=== PATIENT | male | born 1975 | race Caucasian/White ===

== ENCOUNTER 2020-10-01 11:22 | Emergency (ER) | payer BC, SELFPAY ==
[2020-10-01 11:30] VITALS: BP 125/79; PULSE 85; RESP 16; TEMP 36.5; O2SAT 95; BMI 29.5
--- NOTE | 2020-10-01 12:02 | ED.BACK ---
HPI - Back Pain/Injury General Chief Complaint: Back Pain/Injury Stated Complaint: back pain Time Seen by Provider: 10/01/20 12:00 Source: patient Mode of arrival: ambulatory Limitations: no limitations History of Present Illness HPI Narrative: 45 y/o male with no medical history presents with acute on chronic lower back pain. 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 He can usually take ibuprofen with improvement however this time the pain is more severe. It is sharp in quality and radiates down his right buttock and sometimes into the front of his thigh. He denies LE weakness, numbness, or incontinence. He denies specific injury but his job is intensive. Pain was so severe he when down today at work that he was sent to the ER for evaluation. MD elicited complaint: back pain Pertinent past history: prior back pain Onset (ago): week(s) (1) Timing: constant Severity: severe Similar Symptoms Previously: Yes Quality: sharp Location: right lower back Radiation: buttocks and right upper leg Exacerbating factors: movement, walking and coughing/sneezing Relieving factors: immobilization Context: while lifting, turning/twisting and bending Associated symptoms: difficulty walking and myalgias Treatments prior to arrival: NSAIDS Work related injury: Yes Related Data Previous Rx's Medication Instructions Recorded cyclobenzaprine 10 mg PO TID PRN #10 tab 10/01/20 hydrocodone-acetaminophen [[place]] 1 tab PO Q6H PRN #6 tab 10/01/20 lidocaine [Lidoderm] 1 patch TOPICAL DAILY #15 ea 10/01/20 naproxen 500 mg PO BID PRN #20 tab 10/01/20 Allergies Allergy/AdvReac Type Severity Reaction Status Date / Time No Known Allergies Allergy Unverified 06/04/20 16:23 [No Known Allergies*] Review of Systems Review of Systems: Constitutional: No Fever, No Chills Cardiovascular: No Chest Pain, No SOB Respiratory: No Cough, No Sputum Gastrointestinal: No Nausea, No Vomiting, No Diarrhea, No abdominal Pain Genitourinary: No Dysuria, No Urinary Frequency, No Hematuria Musculoskeletal: + joint pain, + Myalgias Skin: No Skin Lesions, No rash Neuro: No Weakness, No Numbness, No Dizziness, No Headache Heme/Lymph: No Bruising, No Lymphadenopathy PMF Past Medical History Attestation statement: The following information was validated with the patient. Medical History No known health problems Social History Social History Advance Directives: No Advance Directives Information Provided: No Physical Exam Vital Signs: Vital Signs: Last Vital Signs Temp 97.7 F 10/01/20 11:30 Pulse 85 10/01/20 11:30 Resp 16 10/01/20 11:30 BP 125/79 10/01/20 11:30 Pulse Ox 95 10/01/20 11:30 Body Mass Index 29.5 Appearance: Alert. Oriented X3. No acute distress. HEENT: normal inspection CVS: Normal heart rate and rhythm. Pulses normal. Respiratory: No respiratory distress. Skin: Skin warm and dry. Normal skin color. Normal skin turgor. No rashes. Back: right lower lumbar soft tissue tenderness with significant tenderness over SI joint. limited spinal flexion due to pain Extremities: atraumatic, no edema, normal ROM of bilateral hips and knees. Neuro: Oriented X 3. No motor deficit. No sensory deficit. Walks with steady gait. Course Course Course Narrative: 45 y/o male here with acute on chronic right lower back pain. No red flag symptoms of LBP. No hx IVDA. Will get lumbar XR, give dose of IM Toradol and Tylenol and reassess. Reevaluation(s) Reevaluation #1: XR normal. Will d/c with treatment for lumbar strain - NSAID, lidoderm, muscle relaxer and PRN norco. Patient encouraged to f/u with his PCP for further management. MDM - Back Pain/Injury Differential Diagnosis Differential diagnosis: Likely lumbar radiculopathy, sciatica, strain of lumbar region, thoracic back pain and discitis Discharge Plan Discharge Clinical Impression: Strain of lumbar region Qualifiers: Encounter type: initial encounter Qualified Code(s): S39.012A - Strain of muscle, fascia and tendon of lower back, initial encounter Patient Disposition: Home, Self-Care Instructions: Low Back Strain (ED), Lower Back Exercises (ED) Additional Instructions: Your x-ray today was normal. Recommend rest. No bending, lifting or twisting. Use ice several times per day for 20 minutes at a time for the next 48 hours and then change to heat. Take medications as prescribed to help with pain and discomfort. Follow up with your Primary Care Doctor this week. If your pain worsens, if you develop new numbness, tingling, weakness, loss of function or incontinence call 911 or come back to the ER right away for evaluation. Prescriptions: New cyclobenzaprine 10 mg tablet 10 mg PO TID PRN (Reason: muscle spasm) Qty: 10 RF: 0 lidocaine [Lidoderm] 5 % adhesive patch,medicated 1 patch topical DAILY Qty: 15 RF: 0 naproxen 500 mg tablet 500 mg PO BID PRN (Reason: pain) Qty: 20 RF: 0 hydrocodone-acetaminophen [[place]] 5-325 mg tablet 1 tab PO Q6H PRN (Reason: severe pain (scale score 7-10)) Qty: 6 RF: 0 Stand Alone Forms: Work/School Release
--- NOTE | 2020-10-01 12:14 | XR_ITS ---
EXAMINATION: XR LUMBOSACRAL SPINE CLINICAL INFORMATION: Lower back pain right side COMPARISON: None TECHNIQUE: Three views of the lumbosacral spine. FINDINGS: There is normal lumbar lordosis. The vertebral heights and alignment appears normal. There is mild ventral spondylosis. No acute fracture, lytic or sclerotic process seen. The SI joints are symmetrical and normal. XR/XR lumbar spine 2-3V IMPRESSION: Unremarkable lumbar spine exam
[2020-10-01] MEDS: Acetaminophen 325 MG TABLET 975 MG PO (12:32)
[2020-10-01] MEDS: Ketorolac Tromethamine 30 MG/ML VIAL IM (12:32)
== END 2020-10-01 13:09 | disposition home or self-care (01) ==
PROVIDERS: Emergency Provider Emergency Medicine Emergency Medical Services; PCP Internal Medicine
DX: S39.012A Strain of muscle, fascia and tendon of lower back, initial encounter (principal); M79.661 Pain in right lower leg; X58.XXXA Exposure to other specified factors, initial encounter; Y93.9 Activity, unspecified; Y92.9 Unspecified place or not applicable; Y99.9 Unspecified external cause status; Z79.899 Other long term (current) drug therapy
CPT/HCPCS: 72100; 96372; 99284; J1885

== ENCOUNTER 2024-05-19 11:13 | Inpatient (IN) | payer OTHER, SELFPAY ==
[2024-05-19 11:20] VITALS: BP 130/94; PULSE 112; RESP 18; TEMP 37.3; O2SAT 95; BMI 31.6
--- NOTE | 2024-05-19 11:20 | ED_ITS ---
HPI - Psych General Chief Complaint: Psychiatric Symptoms Stated Complaint: crisis Time Seen by Provider: 05/19/24 11:38 Source: patient, RN notes reviewed and old records reviewed Mode of arrival: ambulatory History of Present Illness ED Provider: Ashly Banegas PA-C HPI Narrative: 48-year-old male no significant past medical history presenting to the ED complaining of increasing depression suicide ideations and self medicating alcohol and cocaine. 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 States he recently got laid off and is going through a divorce. Denies suicidal plan. HI, auditory or visual hallucinations, history of ETOH withdrawal or withdrawal seizures, CP/SOB. MD complaint: suicidal ideation and feels depressed Related Data Previous Rx's ?Medication ?Instructions ?Recorded cyclobenzaprine 10 mg tablet 10 mg PO TID PRN muscle spasm #10 10/01/20 tabs hydrocodone 5 mg-acetaminophen 325 1 tab PO Q6H PRN severe pain 10/01/20 mg tablet ([place]) (scale score 7-10) #6 tabs lidocaine 5 % topical patch 1 patch topical DAILY #15 ea 10/01/20 (Lidoderm) naproxen 500 mg tablet 500 mg PO BID PRN pain #20 tabs 10/01/20 Allergies Allergy/AdvReac Type Severity Reaction Status Date / Time No Known Allergies Allergy Verified 05/19/24 11:22 [No Known Allergies*] Review of Systems 2 Review of Systems: Constitutional: No Fever, No Chills, No Fatigue, No Malaise Cardiovascular: No Chest Pain, No SOB Respiratory: No Cough, No Dyspnea Gastrointestinal: No Nausea, No Vomiting, No Diarrhea, No Constipation, No Abdominal pain Genitourinary: No Dysuria, No Urinary Frequency, No Hematuria, No Flank Pain Musculoskeletal: No joint pain, No Myalgias, No Joint Swelling Skin: No Skin Lesions, No rash Psych: No Anxiety/Panic, + Depression, + SI, No HI/AH/VH, + Social Issues Yes all other systems are reviewed and are negative Constitutional: Constitutional: Reports as per HPI [facility] Past Medical History Attestation statement: The following information was validated with the patient. Source: old records reviewed Medical History No known health problems Social History Social History Alcohol intake: current Alcohol intake frequency: 3 or more drinks per day Alcohol type: beer and hard liquor Smoked in Last 30 Days: Yes Use of substances other than those prescribed or required for medical reasons: Yes Substance Use Type: Crack/Cocaine Substance Use Frequency: Monthly Last Used Substance: Hours (ago) Advance Directives: No Advance Directives Information Provided: No Do you have a plan to hurt others: No Plan Physical Exam 2 Vital Signs: Vital Signs: Last Vital Signs Temp 98.2 F 05/19/24 19:08 Pulse 81 05/19/24 19:08 Resp 16 05/19/24 19:08 BP 104/71 05/19/24 19:08 Pulse Ox 95 05/19/24 19:08 O2 Del Method Room Air 05/19/24 19:08 BMI result Body Mass Index 31.6 Const: General: cooperative, healthy appearing and no acute distress O rientation/consciousness: patient oriented x3 Limitations: no limitations HEENT: Head: Yes normal to inspection and Yes atraumatic Ears: hearing grossly normal bilaterally General nose exam: Normal external nose present Face and sinus: Yes normal facial exam Eyes: General: appearance normal, both eyes and all related structures EOM: EOMs intact bilaterally Neck: Neck: Yes normal visual inspection and Yes no meningeal signs Resp: Effort & Inspection: normal respiratory effort and no respiratory distress Auscultation: clear to auscultation bilaterally Cardio: Rate: regular rate GI: Inspection: Yes normal to inspection Skin: Rashes: no rashes Wounds: no wounds Neuro: General: patient oriented x3, gait normal, tone normal, moves all extremities, no meningeal signs, no focal motor deficits and CN's II-XI intact bilaterally Cranial nerves: Yes CN's II-XII intact bilaterally Gait exam (Neuro): Normal gait present Extrem: General: Yes normal to inspection Psych: Speech and movement: Normal speech and movement present Affect: Sad affect present Attitude: cooperative Thought content: Suicidality present, no homicidality and no hallucinations Insight: Good insight present (Psych) Course Course Course Narrative: This is a Rapid Medical Exam performed in triage by Ashly Banegas PA-C. Full HPI, ROS and PE to be performed by primary ED provider. 48 yo M presenting to the ED c/o self medicating with alcohol & cocaine, & going through mental breakdown . Last drink 10mins ago, last used cocaine 1 hr ago. Admits to getting laid off & going through a divorce. Admits to SI. denies HI or hallucinations. denies hx etoh withdrawal sz's. PE: depressed, awake & alert, ambulating w/steady gait. no sign of etoh withdrawal at this time Plan: Labs, Tox screen, CARE consult -labs reassuring. Tox screen positive for cocaine. Ethanol 119 05/19/2024 at 16:01 Start physician observation The patient was seen by the care team and I obtained the following information from the care team clinician. The patient presented to the emergency department for evaluation of suicidal ideation and depression secondary to nonspecific stressors. The patient has a history of substance use in his been drinking alcohol and using cocaine. The patient has bipolar disorder and schizophrenia in his not on medications. Care team is recommending inpatient bed search. The patient can not contract for safety at this time therefore he will be placed on a Section 12. Therefore, the patient's was placed in physician observation and he will remain in the emergency department until disposition can be determined or until patient's symptoms improve over time. Medical Decision Making Medical Decision Making [facility] Narrative: 48-year-old male no significant past medical history presenting to the ED complaining of increasing depression suicide ideations and self medicating alcohol and cocaine. On exam tachycardic, NAD, no tongue fasciculations or tremors, sad/depressed, cooperative. No evidence of ETOH withdrawal at this time. Plan: Labs, tox screen, care team consult, CIWA Please refer to course for remaining clinical decision making, interpretation of labs/imaging results, and discussions with consultants and/or family members. Differential Diagnosis Differential Diagnoses: The differential diagnosis associated with the presentation includes As above Admission/Observation Consideration of admission/observation: Escalation of care including admission/observation considered Consult Healthcare Provider Management of the patient was discussed with: Behavioral Health Provider Lab Data [facility] Lab Attestation statement: I reviewed the patient's lab results. 05/19/24 11:29 05/19/24 11:29 Labs: Lab Results 05/19/24 05/19/24 Range/Units 11:29 11:55 WBC 7.6 (4.8-10.8) X10*3/uL RBC 4.81 (4.60-5.80) X10*6/uL Hgb 15.7 (14.0-18.0) g/dl Hct 43.8 (42.0-52.0) % MCV 91.1 (80.0-98.0) fL MCH 32.6 (27.0-33.0) pg MCHC 35.8 (31.0-36.0) g/dl RDW 12.3 (11.0-16.0) % Plt Count 267 (160-400) X10*3/uL MPV 9.1 L (9.4-12.4) fL Immature Gran % (Auto) 0.3 (0.0-0.4) % Neut % (Auto) 69.4 (45-73) % Lymph % (Auto) 24.8 (20-40) % [place] % (Auto) 4.8 (2-11) % Eos % (Auto) 0.3 (0-4) % Baso % (Auto) 0.4 (0-2) % Lymph # (Auto) 1.9 (1.2-4.9) X10*3/uL [place] # (Auto) 0.4 (0.1-1.2) X10*3/uL Eos # (Auto) 0.0 (0.0-0.4) X10*3/uL Baso # (Auto) 0.0 (0.0-0.2) X10*3/uL Abs Immat Gran (auto) 0.02 (0.00-0.03) X10*3/uL Absolute Neuts (auto) 5.3 (2.0-8.3) x10*3/uL Absolute Nucleated RBC 0.000 (0.0-0.012) X10*3/uL Nucleated RBC % (auto) 0.0 (0.0-0.2) /100WBC Sodium 141 (135-145) mmol/L Potassium 3.6 (3.3-5.1) mmol/L Chloride 108 (96-108) mmol/L Carbon Dioxide 22 (22-29) mmol/L Anion Gap 15 (12-20) BUN 6 L (9-16) mg/dL Creatinine 0.83 (0.5-1.4) mg/dL Estim Creat Clear Calc 144.7 Estimated GFR > 60 Random Glucose 115 (60-115) mg/dL Calcium 9.3 (8.4-10.2) mg/dL Magnesium 2.2 (1.6-2.6) mg/dL Total Bilirubin 0.3 (0.0-1.0) mg/dL Direct Bilirubin 0.1 (0.0-0.5) mg/dL AST 17 (5-37) U/L ALT 24 (0-40) U/L Alkaline Phosphatase 52 (39-117) U/L Total Protein 7.5 (6.5-8.0) g/dL Albumin 4.6 (3.5-5.0) g/dL Lipase 20 (8-78) U/L Salicylates < 5.0 L (15-30) mg/dL Urine Opiates Screen Not Detected (Not Detect) Ur Buprenorphine Scrn Not Detected (Not Detect) ng/mL Ur Oxycodone Screen Not Detected (Not Detect) ng/mL Urine Methadone Screen Not Detected (Not Detect) ng/mL Urine Fentanyl Screen Not Detected (Not Detect) Acetaminophen < 3 (<30) mcg/mL Ur Barbiturates Screen Not Detected (Not Detect) Ur Phencyclidine Scrn Not Detected (Not Detect) Ur Amphetamines Screen Not Detected (Not Detect) U Benzodiazepines Scrn Not Detected (Not Detect) Urine Cocaine Screen POSITIVE H (Not Detect) U Marijuana (THC) Screen Not Detected (Not Detect) Ethyl Alcohol 119 mg/dL External Record Review External record reviewed: Inpatient record, Office record, Outpatient record, Prior outpatient labs, Prior outpatient radiology, Primary care record and Outside ED record Tests considered The following testing was considered but not selected: As above Chronic Conditions Patient?s care impacted by: Other Social Determinants Patient?s care significantly limited by Social Determinants of Health including: Alcoholism and drug addiction in family and Problems related to primary support group Discharge Plan Discharge Clinical Impression: Depression with suicidal ideation, Polysubstance use disorder Patient Disposition: Still a Patient Prescriptions: No Action cyclobenzaprine 10 mg tablet 10 mg PO TID PRN (Reason: muscle spasm) Qty: 10 0RF lidocaine [Lidoderm] 5 % adhesive patch,medicated 1 patch topical DAILY Qty: 15 0RF Rx Instructions: leave on most painful area for up to 12 hrs naproxen 500 mg tablet 500 mg PO BID PRN (Reason: pain) Qty: 20 0RF hydrocodone-acetaminophen [[place]] 5-325 mg tablet 1 tab PO Q6H PRN (Reason: severe pain (scale score 7-10)) Qty: 6 0RF Interventions: [place]-Suicide Risk Severity Scale Last Done: 05/19/24 14:20 Print Language: Ivorian
[2024-05-19 11:41] LABS: MANUAL DIFF FLAG NO
[2024-05-19 11:44] LABS: Basophils Percent Auto 0.4 % (0-2); Eosinophils Percent Auto 0.3 % (0-4); Hematocrit 43.8 % (42.0-52.0); Hemoglobin 15.7 g/dl (14.0-18.0); Imm Gran Abs Auto 0.02 X10*3/uL (0.00-0.03); Imm Gran Pct Auto 0.3 % (0.0-0.4); Lymphocytes Absolute Auto 1.9 X10*3/uL (1.2-4.9); Lymphocytes Percent Auto 24.8 % (20-40); Mean Corpuscular HGB Conc 35.8 g/dl (31.0-36.0); Mean Corpuscular Hemoglobin 32.6 pg (27.0-33.0); Mean Corpuscular Volume 91.1 fL (80.0-98.0); Mean Platelet Volume 9.1 fL (9.4-12.4); Monocytes Absolute Auto 0.4 X10*3/uL (0.1-1.2); Monocytes Percent Auto 4.8 % (2-11); Neutrophils Absolute Auto 5.3 x10*3/uL (2.0-8.3); Neutrophils Percent Auto 69.4 % (45-73); Platelet Count 267 X10*3/uL (160-400); Red Blood Count 4.81 X10*6/uL (4.60-5.80); Red Cell Distribution Width 12.3 % (11.0-16.0); White Blood Count 7.6 X10*3/uL (4.8-10.8)
[2024-05-19 12:00] VITALS: PULSE 73; RESP 17; TEMP 36.1; O2SAT 97
--- NOTE | 2024-05-19 12:00 | PC.NURSE ---
patient changed over by security - belongings obtained/placed in C4. belongings list created/placed in pt's chart. urine obtained/sent to lab.
[2024-05-19 12:03] LABS: Acetaminophen LAB < 3 mcg/mL (<30); Anion Gap 15 (12-20); Salicylate < 5.0 mg/dL (15-30)
[2024-05-19 12:04] LABS: Alanine Aminotransferase 24 U/L (0-40); Albumin Level 4.6 g/dL (3.5-5.0); Alkaline Phosphatase 52 U/L (39-117); Aspartate Amino Transferase 17 U/L (5-37); Bilirubin Direct 0.1 mg/dL (0.0-0.5); Bilirubin Total 0.3 mg/dL (0.0-1.0); Blood Urea Nitrogen 6 mg/dL (9-16); Calcium 9.3 mg/dL (8.4-10.2); Carbon Dioxide 22 mmol/L (22-29); Chloride 108 mmol/L (96-108); Creatinine Clr Calc Pharmacy 144.7; Estimated Glomerular Filt Rate > 60; Ethanol 119 mg/dL; Glucose Random 115 mg/dL (60-115); Lipase 20 U/L (8-78); Magnesium 2.2 mg/dL (1.6-2.6); Potassium 3.6 mmol/L (3.3-5.1); Sodium 141 mmol/L (135-145); Total Protein 7.5 g/dL (6.5-8.0)
[2024-05-19 12:18] LABS: Amphetamine Screen Urine Not Detected (Not Detect); Barbiturates, Urine Not Detected (Not Detect); Benzodiazepines Screen Urine Not Detected (Not Detect); Buprenorphine Scr Not Detected (Not Detect); Cannabinoid Screen Urine Not Detected (Not Detect); Cocaine Screen Urine POSITIVE (Not Detect); Fentanyl, urine Not Detected (Not Detect); Methadone Screen, Urine Not Detected (Not Detect); Opiate Screen Urine Not Detected (Not Detect); Oxycodone Screen Urine Not Detected (Not Detect); Phencyclidine Screen Urine Not Detected (Not Detect)
[2024-05-19 13:11] VITALS: BP 170/95; PULSE 89; RESP 18; TEMP 36.6; O2SAT 93
--- NOTE | 2024-05-19 14:34 | PC.NURSE ---
a&ox4. vss and up to date. pt presents to the ED w/ increased depression, alcohol/substance use for the past month. pt reports thoughts of SI w/ the plan being to hang himself. denies HI. pt reports attempting to get help multiple times this month but nothing has followed through and he is feeling defeated. pt reports drinking hard liquor/beer all day every day to self medicate w/ occasional cocaine use via intranasally. denies past history of IVDU. 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 CIWA = 4 - results related to increased anxiety. pt otherwise has no complaints. denies pain. no sob/wob noted. respirations even/unlabored. 1:1 sitter present. plan of care ongoing. call brambila placed within reach.
--- NOTE | 2024-05-19 14:37 | PC.NURSE ---
regular diet placed by this RN. attempted to complete med rec but pt states he has not taken any of his prescribed medication x 6 months and doesn't want to take anything here. 1:1 sitter remains bedside.
--- NOTE | 2024-05-19 15:46 | PC.NURSE ---
pt speaking w/ care team at this time.
[2024-05-19 16:00] VITALS: BP 102/63; PULSE 81; RESP 18; TEMP 36.7; O2SAT 94
[2024-05-19 19:08] VITALS: BP 104/71; PULSE 81; RESP 16; TEMP 36.8; O2SAT 95
[2024-05-19 22:00] VITALS: RESP 16
--- NOTE | 2024-05-19 23:58 | PC.NURSE ---
Assumed care of patient at 2300, patient appears to be sleeping, respirations even and unlabored, no apparent distress noted. Continue plan of care for inpatient bedsearch
[2024-05-20 06:06] VITALS: BP 109/76; PULSE 58; RESP 17; TEMP 36.9; O2SAT 97
[2024-05-20 14:00] VITALS: BP 102/63; PULSE 64; RESP 16; TEMP 36.7; O2SAT 95
[2024-05-20 21:45] VITALS: BP 106/72; PULSE 85; RESP 18; TEMP 36.8; O2SAT 96
--- NOTE | 2024-05-21 | ECG_ITS ---
Test Reason : PROLONGED QT Blood Pressure : / mmHG Vent. Rate : 052 BPM Atrial Rate : 052 BPM P-R Int : 124 ms QRS Dur : 104 ms QT Int : 406 ms P-R-T Axes : 039 021 045 degrees QTc Int : 377 ms Sinus bradycardia Otherwise normal ECG No previous ECGs available Referred By: Nicolas Owen Electronically Signed By:APRYL AVALOS
[2024-05-21 01:15] VITALS: RESP 16
--- NOTE | 2024-05-21 01:20 | PC.NURSE ---
Assumed care of this Pt at 2300. Pt appears to be sleeping, equal non labored respirations, no apparent distress. Plan of care ongoing.
[2024-05-21 06:00] VITALS: RESP 16
--- NOTE | 2024-05-21 10:23 | PC.NURSE ---
Patient reports having no home medications, he reports he has not taken his medications since [facility]
--- NOTE | 2024-05-21 12:41 | PC.NURSE ---
pt continues to be withdrawn, not exiting room. Speaks very minimally in conversation
[2024-05-21 15:00] VITALS: BP 134/88; PULSE 85; RESP 18; TEMP 36.5; O2SAT 96
[2024-05-21 16:11] VITALS: BMI 30.8
[2024-05-21 16:26] VITALS: BP 115/81
[2024-05-21] MEDS: cloNIDine HCL 0.1 MG TABLET PO ×2 (16:26→20:45)
[2024-05-21 20:00] VITALS: BP 132/89; PULSE 78; RESP 16; TEMP 36.3; O2SAT 94
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
[2024-05-21] MEDS: traZODone HCL 50 MG TABLET PO (20:44)
[2024-05-21 20:45] VITALS: BP 132/89
[2024-05-22] VITALS: BP 97/56; PULSE 58; RESP 16; TEMP 36.4; O2SAT 96
[2024-05-22 04:05] VITALS: BP 98/58; PULSE 54; RESP 12; TEMP 36.8; O2SAT 96
[2024-05-22 08:00] VITALS: BP 107/80; PULSE 101; RESP 18; TEMP 36.4; O2SAT 93
[2024-05-22 09:02] LABS: Estimated Average Glucose 103 mg/dL; Hemoglobin A1c % 5.2 % (<6.0)
[2024-05-22 09:11] LABS: Alanine Aminotransferase 27 U/L (0-40); Albumin Level 4.3 g/dL (3.5-5.0); Alkaline Phosphatase 55 U/L (39-117); Anion Gap 13 (12-20); Aspartate Amino Transferase 19 U/L (5-37); Bilirubin Total 0.6 mg/dL (0.0-1.0); Blood Urea Nitrogen 16 mg/dL (9-16); Calcium 9.9 mg/dL (8.4-10.2); Carbon Dioxide 27 mmol/L (22-29); Chloride 104 mmol/L (96-108); Cholesterol 188 mg/dL (<200); Creatinine Clr Calc Pharmacy 119.8; Estimated Glomerular Filt Rate > 60; Glucose Fasting 107 mg/dL (60-99); HDL Cholesterol 36 mg/dL (>40); LDL Cholesterol Calculated 120 mg/dL (<100); Potassium 4.5 mmol/L (3.3-5.1); Sodium 139 mmol/L (135-145); Total Protein 7.3 g/dL (6.5-8.0); Triglycerides 161 mg/dL (<150)
[2024-05-22] MEDS: Folic Acid 1 MG TABLET PO (09:23)
[2024-05-22] MEDS: Multivitamin TABLET 1 TAB PO (09:23)
[2024-05-22] MEDS: Thiamine HCL 100 MG TABLET PO (09:23)
[2024-05-22 09:28] LABS: TSH reflex Free T4 4.71 uIU/mL (0.32-4.0)
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
[2024-05-22 09:59] LABS: Free T4 (Free Thyroxine) 0.77 ng/dL (0.71-1.85)
[2024-05-22] MEDS: cloNIDine HCL 0.1 MG TABLET PO ×2 (10:18→21:02)
[2024-05-22 10:19] VITALS: BP 110/74; PULSE 88; RESP 18
[2024-05-22] MEDS: OLANZapine 5 MG TABLET PO ×2 (10:50→21:02)
[2024-05-22] MEDS: FLUoxetine HCl 10 MG CAPSULE PO (13:03)
[2024-05-22 19:43] VITALS: BP 119/68; PULSE 76; RESP 15; TEMP 36.2; O2SAT 96
[2024-05-23 07:00] VITALS: BMI 31.4
[2024-05-23 08:00] VITALS: BP 98/60; PULSE 55; RESP 16; TEMP 36.9; O2SAT 95
[2024-05-23] MEDS: Thiamine HCL 100 MG TABLET PO (08:50)
[2024-05-23] MEDS: FLUoxetine HCl 10 MG CAPSULE PO (08:50)
[2024-05-23] MEDS: Multivitamin TABLET 1 TAB PO (08:50)
[2024-05-23] MEDS: Folic Acid 1 MG TABLET PO (08:50)
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
[2024-05-23] MEDS: Acetaminophen 325 MG TABLET 650 MG PO (12:11)
[2024-05-23] MEDS: OLANZapine 5 MG TABLET PO ×2 (12:13→20:40)
[2024-05-23] MEDS: Ibuprofen 600 MG TABLET PO (12:51)
[2024-05-23 20:00] VITALS: BP 129/70; PULSE 56; RESP 15; TEMP 36.4; O2SAT 97
[2024-05-23] MEDS: cloNIDine HCL 0.1 MG TABLET PO (20:40)
[2024-05-24] MEDS: Ibuprofen 600 MG TABLET PO ×2 (07:15→21:26)
[2024-05-24] MEDS: Acetaminophen 325 MG TABLET 650 MG PO (07:15)
[2024-05-24 08:00] VITALS: BP 117/68; PULSE 76; RESP 16; TEMP 36.4; O2SAT 98
[2024-05-24] MEDS: Thiamine HCL 100 MG TABLET PO (10:01)
[2024-05-24] MEDS: Folic Acid 1 MG TABLET PO (10:01)
[2024-05-24] MEDS: Multivitamin TABLET 1 TAB PO (10:02)
[2024-05-24] MEDS: FLUoxetine HCl 20 MG CAPSULE PO (10:02)
--- NOTE | 2024-05-24 10:16 | HO.PSYCHPN ---
Subjective Subjective Date of Service: 05/24/24 Reason For Visit: depression/si Interim History: met with patient; discussed with team reports mood is better still and affect noticeably brighter. Pt shared how he's gaining more perspective on effects of trauma in his life; feeling better about family relationships. Mental Status Exam Mental Status Exam Narrative: Pt is alert and oriented; behavior is cooperative, calm; patient is not in distress; dressed in casual attire adequate hygiene and grooming; mood is described as good and affect congruent, brighter; eye contact appropriate; Speech is normal rate, volume, prosody; no psychomotor retardation present; thought process is organized and goal directed; Thought content is on processing trauma, family; otherwise pertinent to relevant topics and without any delusional content, paranoid ideations or grandiosity; no SI/no HI. No AVH Patients insight and judgment improved, fair. Diagnostics Vital Signs (24Hr): Vital Signs - 24 hr 05/23/24 20:00 Temperature 97.6 F Pulse Rate 56 Respiratory Rate 15 Blood Pressure 129/70 Pulse Oximetry 97 BMI result Body Mass Index 31.4 Labs 05/19/24 11:29 05/22/24 08:20 Medications Medications Current Medications Acetaminophen (Acetaminophen 325 Mg Tablet) 650 mg PO Q6H PRN PRN Reason: Headache/Pain Mild Scale (1-3) Last Admin: 05/24/24 07:15 Dose: 650 mg Al Hydroxide/Mg Hydroxide (Magnesium Hydrox/Alum Hydrox 30 Ml Oral.Susp) 30 ml PO Q6H PRN PRN Reason: Heartburn/Nausea Clonidine HCl (Clonidine Hcl 0.1 Mg Tablet) 0.1 mg PO Q4H PRN; Protocol PRN Reason: moderate anxiety Last Admin: 05/22/24 10:18 Dose: 0.1 mg Clonidine HCl (Clonidine Hcl 0.1 Mg Tablet) 0.1 mg PO BEDTIME TUCKER; Protocol Last Admin: 05/23/24 20:40 Dose: 0.1 mg Fluoxetine HCl (Fluoxetine Hcl 20 Mg Capsule) 20 mg PO DAILY [facility] Last Admin: 05/24/24 10:02 Dose: 20 mg Folic Acid (Folic Acid 1 Mg Tablet) 1 mg PO DAILY [facility] Last Admin: 05/24/24 10:01 Dose: 1 mg Hydroxyzine HCl (Hydroxyzine Hcl 25 Mg Tablet) 25 mg PO Q6H PRN PRN Reason: Anxiety Ibuprofen (Ibuprofen 600 Mg Tablet) 600 mg PO Q8H PRN PRN Reason: Pain, Moderate(Pain Scale 4-6) Last Admin: 05/24/24 07:15 Dose: 600 mg Magnesium Hydroxide (Milk Of Magnesia 30 Ml Oral.Susp) 30 ml PO DAILY PRN PRN Reason: Constipation Multivitamins/Vitamin C (Multivitamin Tablet) 1 tab PO DAILY [facility] Last Admin: 05/24/24 10:02 Dose: 1 tab Nicotine (Nicotine 21 Mg Patch.Td24) 21 mg TRANSDERMA DAILY PRN PRN Reason: smoking cessation Nicotine Polacrilex (Nicotine Polacrilex 2 Mg Gum) 4 mg BUCCAL Q2H PRN PRN Reason: Nicotine Cravings Olanzapine (Olanzapine 5 Mg Tablet) 5 mg PO TID PRN PRN Reason: agitation Last Admin: 05/23/24 20:40 Dose: 5 mg Thiamine HCl (Thiamine Hcl 100 Mg Tablet) 100 mg PO DAILY [facility] Last Admin: 05/24/24 10:01 Dose: 100 mg Trazodone HCl (Trazodone Hcl 50 Mg Tablet) 50 mg PO BEDTIME MRX1 PRN PRN Reason: Insomnia Last Admin: 05/21/24 20:44 Dose: 50 mg Allergies Allergies Allergy/AdvReac Type Severity Reaction Status Date / Time No Known Allergies Allergy Verified 05/19/24 11:22 [No Known Allergies*] Assessment & Plan Assessment & Plan (1) Severe recurrent major depressive disorder with psychosis: Status: Acute Code(s): F33.3 - Major depressive disorder, recurrent, severe with psychotic symptoms (2) PTSD (post-traumatic stress disorder): Status: Acute Code(s): F43.10 - Post-traumatic stress disorder, unspecified (3) Alcohol abuse: Status: Acute Code(s): F10.10 - Alcohol abuse, uncomplicated (4) Cocaine abuse: Status: Acute Code(s): F14.10 - Cocaine abuse, uncomplicated Plan Patient is a 48-year-old male with history of depression, PTSD who presents for worsening depression and SI in the face of psychosocial stressors and unmedicated. Patient reports that he is typically depressed and struggles mightily with memories of childhood trauma. Patient reports that when he is doing overall okay it is because he is suppressing these memories and such times do not last. Patient reports about a month and a half ago he and his started having relational problems which triggered this most recent bout of depression; patient moved out of the house and soon started drinking daily. He was then laid off from his job permanently about 2 weeks ago which further his depressed feelings as he had worked very hard for this company. Patient started having passive SI however the thoughts increased in about a week ago he started having more intense wishes of being with some vague plans and hoping it might happened accidentally; patient thought of his son however and decided to present for help. Patient says he has never before revealed his struggles with AH until this admission. Since teenage years he would intermittently hear a voice that would say hit or hit him... H this is the only word/words he has ever heard and would only happen if he was talking to another male (never with females or children). If the other male individual was confrontational, patient would start to think he better hit this person and hurt him before he himself gets hurt-and often would do so; if however this was a friend or a gentle person, patient would ignore the voice and just ask himself why he would get such an evil thought. Reports history of agitation and violence however none for well over a decade. There was one time, 12 years ago when his was that he heard the voice say baby is ... Or baby is not yours however he reiterates, this was a one time event and has never been repeated. Patient denies any history of manic type episodes or behaviors. Other than this past month, only drinks occasionally and not to excess, denies history of alcoholism; cocaine infrequently and only when it is offered. Formulation/clinical reasoning: Patient has history of significant depression and PTSD symptoms; AH seems to be more a product of trauma, given its nuances, rather than a psychotic etiology. Patient reports history of doing well on Prozac which he was on for 6 months which improved his mood and resolved AH; only reason he got off was thinking he did need it anymore. Patient denies any withdrawal symptoms and reportedly has not been drinking enough to require detox. Patient reports he has never before talked about AH or his trauma. He very much agrees that he needs therapy and feels that he is finally at a place where he is ready to open up. Hospital course: doing better, mood is better and depression abating, no SI; AH resolved and tolerating prozac; engaged in treatment 05/24 mood better, affect brighter; continues to process trauma hx, family relationships Plan: CV Q 15 minute checks Increased to Prozac 20 mg daily; will very likely titrate Zyprexa 5 mg p.r.n. for agitation Clonidine 0.1 mg q.h.s. for insomnia Trazodone p.r.n. for insomnia Gather collateral; patient gave permission to call his including giving her phone number Medication trials: Prozac: Helpful, AH resolved Zoloft: Not helpful [place] Seroquel Depakote Patient educated on: diagnosis, medication risk/benefits and therapeutic strategies Informed Consent: understands Reason for continued inpatient stay Substantial Risk for: stable for discharge Time Spent With Patient Time: Total time managing care of this patient today ____ minutes.
[2024-05-24] MEDS: OLANZapine 5 MG TABLET PO ×2 (13:12→21:25)
[2024-05-24 20:00] VITALS: BP 140/81; PULSE 93; RESP 18; TEMP 36.6; O2SAT 96
[2024-05-24] MEDS: cloNIDine HCL 0.1 MG TABLET PO (21:25)
--- NOTE | 2024-05-25 08:03 | P.PNPSI_ITS ---
Subjective Subjective Date of Service: 05/25/24 Reason For Visit: depression/si Subjective Notes: Conditional Voluntary Medical Problems Affecting Mental Status: No Interim History: met with patient; discussed with nursing. Overall reports that things are improving including mood. Feels he is a much better perspective on things. Thankful for his and children. Also hopeful he can speak with his family more about trauma and hopefully this having a positive impact on the family overall and things being more open. Sleep energy and appetite fair. No med concerns. Looking forward to discharge planning. Medication Compliance: Yes Side effects from medications: No Attending Groups: Yes Review of Systems Acute medical concerns: No Review of Systems Review of Systems Unremarkable Mental Status Exam Mental Status Exam Narrative: Pt is alert and oriented; behavior is cooperative, calm; patient is not in distress; dressed in casual attire adequate hygiene and grooming; mood is described as good and affect congruent, brighter; eye contact appropriate; Speech is normal rate, volume, prosody; no psychomotor retardation present; thought process is organized and goal directed; Thought content is on processing trauma, family; otherwise pertinent to relevant topics and without any delusional content, paranoid ideations or grandiosity; no SI/no HI. No AVH. Patients insight and judgment improved, fair. Diagnostics Vital Signs (24Hr): Vital Signs - 24 hr 05/24/24 20:00 Temperature 97.9 F Pulse Rate 93 Respiratory Rate 18 Blood Pressure 140/81 H Pulse Oximetry 96 Oxygen Delivery Method Room Air BMI result Body Mass Index 31.4 Labs 05/19/24 11:29 05/22/24 08:20 Medications Medications Current Medications Acetaminophen (Acetaminophen 325 Mg Tablet) 650 mg PO Q6H PRN PRN Reason: Headache/Pain Mild Scale (1-3) Last Admin: 05/24/24 07:15 Dose: 650 mg Al Hydroxide/Mg Hydroxide (Magnesium Hydrox/Alum Hydrox 30 Ml Oral.Susp) 30 ml PO Q6H PRN PRN Reason: Heartburn/Nausea Clonidine HCl (Clonidine Hcl 0.1 Mg Tablet) 0.1 mg PO Q4H PRN; Protocol PRN Reason: moderate anxiety Last Admin: 05/22/24 10:18 Dose: 0.1 mg Clonidine HCl (Clonidine Hcl 0.1 Mg Tablet) 0.1 mg PO BEDTIME TUCKER; Protocol Last Admin: 05/24/24 21:25 Dose: 0.1 mg Fluoxetine HCl (Fluoxetine Hcl 20 Mg Capsule) 20 mg PO DAILY [facility] Last Admin: 05/24/24 10:02 Dose: 20 mg Folic Acid (Folic Acid 1 Mg Tablet) 1 mg PO DAILY [facility] Last Admin: 05/24/24 10:01 Dose: 1 mg Hydroxyzine HCl (Hydroxyzine Hcl 25 Mg Tablet) 25 mg PO Q6H PRN PRN Reason: Anxiety Ibuprofen (Ibuprofen 600 Mg Tablet) 600 mg PO Q8H PRN PRN Reason: Pain, Moderate(Pain Scale 4-6) Last Admin: 05/24/24 21:26 Dose: 600 mg Magnesium Hydroxide (Milk Of Magnesia 30 Ml Oral.Susp) 30 ml PO DAILY PRN PRN Reason: Constipation Multivitamins/Vitamin C (Multivitamin Tablet) 1 tab PO DAILY [facility] Last Admin: 05/24/24 10:02 Dose: 1 tab Nicotine (Nicotine 21 Mg Patch.Td24) 21 mg TRANSDERMA DAILY PRN PRN Reason: smoking cessation Nicotine Polacrilex (Nicotine Polacrilex 2 Mg Gum) 4 mg BUCCAL Q2H PRN PRN Reason: Nicotine Cravings Olanzapine (Olanzapine 5 Mg Tablet) 5 mg PO TID PRN PRN Reason: agitation Last Admin: 05/24/24 21:25 Dose: 5 mg Thiamine HCl (Thiamine Hcl 100 Mg Tablet) 100 mg PO DAILY [facility] Last Admin: 05/24/24 10:01 Dose: 100 mg Trazodone HCl (Trazodone Hcl 50 Mg Tablet) 50 mg PO BEDTIME MRX1 PRN PRN Reason: Insomnia Last Admin: 05/21/24 20:44 Dose: 50 mg Allergies Allergies Allergy/AdvReac Type Severity Reaction Status Date / Time No Known Allergies Allergy Verified 05/19/24 11:22 [No Known Allergies*] Assessment & Plan Assessment & Plan (1) Severe recurrent major depressive disorder with psychosis: Status: Acute Code(s): F33.3 - Major depressive disorder, recurrent, severe with psychotic symptoms (2) PTSD (post-traumatic stress disorder): Status: Acute Code(s): F43.10 - Post-traumatic stress disorder, unspecified (3) Alcohol abuse: Status: Acute Code(s): F10.10 - Alcohol abuse, uncomplicated (4) Cocaine abuse: Status: Acute Code(s): F14.10 - Cocaine abuse, uncomplicated Plan Patient is a 48-year-old male with history of depression, PTSD who presents for worsening depression and SI in the face of psychosocial stressors and unmedicated. Patient reports that he is typically depressed and struggles mightily with memories of childhood trauma. Patient reports that when he is doing overall okay it is because he is suppressing these memories and such times do not last. Patient reports about a month and a half ago he and his started having relational problems which triggered this most recent bout of depression; patient moved out of the house and soon started drinking daily. He was then laid off from his job permanently about 2 weeks ago which further his depressed feelings as he had worked very hard for this company. Patient started having passive SI however the thoughts increased in about a week ago he started having more intense wishes of being with some vague plans and hoping it might happened accidentally; patient thought of his son however and decided to present for help. Patient says he has never before revealed his struggles with AH until this admission. Since teenage years he would intermittently hear a voice that would say hit or hit him... H this is the only word/words he has ever heard and would only happen if he was talking to another male (never with females or children). If the other male individual was confrontational, patient would start to think he better hit this person and hurt him before he himself gets hurt-and often would do so; if however this was a friend or a gentle person, patient would ignore the voice and just ask himself why he would get such an evil thought. Reports history of agitation and violence however none for well over a decade. There was one time, 12 years ago when his was that he heard the voice say baby is ... Or baby is not yours however he reiterates, this was a one time event and has never been repeated. Patient denies any history of manic type episodes or behaviors. Other than this past month, only drinks occasionally and not to excess, denies history of alcoholism; cocaine infrequently and only when it is offered. Formulation/clinical reasoning: Patient has history of significant depression and PTSD symptoms; AH seems to be more a product of trauma, given its nuances, rather than a psychotic etiology. Patient reports history of doing well on Prozac which he was on for 6 months which improved his mood and resolved AH; only reason he got off was thinking he did need it anymore. Patient denies any withdrawal symptoms and reportedly has not been drinking enough to require detox. Patient reports he has never before talked about AH or his trauma. He very much agrees that he needs therapy and feels that he is finally at a place where he is ready to open up. Plan: CV Q 15 minute checks Start Prozac 10 mg daily; will very likely titrate Zyprexa 5 mg p.r.n. for agitation Clonidine 0.1 mg q.h.s. for insomnia Trazodone p.r.n. for insomnia Gather collateral; patient gave permission to call his including giving her phone number Medication trials: Prozac: Helpful, AH resolved Zoloft: Not helpful [place] Seroquel Depakote 05/25: no changes Reason for continued inpatient stay Substantial Risk for: harm to self Time Spent With Patient Time: Total time managing care of this patient today ____ minutes.
[2024-05-25 08:07] VITALS: BP 99/65; PULSE 57; TEMP 36.7; O2SAT 95
[2024-05-25] MEDS: FLUoxetine HCl 20 MG CAPSULE PO (08:49)
[2024-05-25] MEDS: Multivitamin TABLET 1 TAB PO (08:49)
[2024-05-25] MEDS: Thiamine HCL 100 MG TABLET PO (08:50)
[2024-05-25] MEDS: Folic Acid 1 MG TABLET PO (08:50)
[2024-05-25] MEDS: Ibuprofen 600 MG TABLET PO (08:54)
[2024-05-25] MEDS: OLANZapine 5 MG TABLET PO (15:00)
[2024-05-25] MEDS: hydrOXYzine HCL 25 MG TABLET PO (16:37)
[2024-05-25 20:00] VITALS: BP 145/84; PULSE 73; TEMP 36.5; O2SAT 96
[2024-05-25] MEDS: Acetaminophen 325 MG TABLET 650 MG PO (20:46)
[2024-05-25] MEDS: traZODone HCL 50 MG TABLET PO (20:46)
[2024-05-25] MEDS: cloNIDine HCL 0.1 MG TABLET PO (20:46)
[2024-05-26 07:48] VITALS: BP 103/56; PULSE 64; RESP 16; TEMP 36.7; O2SAT 94
--- NOTE | 2024-05-26 08:08 | HO.PSYCHPN ---
Subjective Subjective Date of Service: 05/26/24 Reason For Visit: depression/si Medical Problems Affecting Mental Status: No Interim History: met with patient; discussed with nursing. Overall things continue to be positive. Eager for discharge planning so he can continue progress in community setting. Mood stable. Sleep energy and appetite good. No med concerns. Medication Compliance: Yes Side effects from medications: No Attending Groups: Yes Review of Systems Acute medical concerns: No Review of Systems Review of Systems Unremarkable Mental Status Exam Mental Status Exam Narrative: Pt is alert and oriented; behavior is cooperative, calm; patient is not in distress; dressed in casual attire adequate hygiene and grooming; mood is described as good and affect congruent, brighter; eye contact appropriate; Speech is normal rate, volume, prosody; no psychomotor retardation present; thought process is organized and goal directed; Thought content is on processing trauma, family; otherwise pertinent to relevant topics and without any delusional content, paranoid ideations or grandiosity; no SI/no HI. No AVH. Patients insight and judgment improved, fair. Diagnostics Vital Signs (24Hr): Vital Signs - 24 hr 05/25/24 20:00 05/26/24 07:48 Temperature 97.7 F 98.1 F Pulse Rate 73 64 Respiratory Rate 16 Blood Pressure 145/84 H 103/56 L Pulse Oximetry 96 94 Oxygen Delivery Method Room Air Room Air BMI result Body Mass Index 31.4 Labs 05/19/24 11:29 05/22/24 08:20 Medications Medications Current Medications Acetaminophen (Acetaminophen 325 Mg Tablet) 650 mg PO Q6H PRN PRN Reason: Headache/Pain Mild Scale (1-3) Last Admin: 05/25/24 20:46 Dose: 650 mg Al Hydroxide/Mg Hydroxide (Magnesium Hydrox/Alum Hydrox 30 Ml Oral.Susp) 30 ml PO Q6H PRN PRN Reason: Heartburn/Nausea Clonidine HCl (Clonidine Hcl 0.1 Mg Tablet) 0.1 mg PO Q4H PRN; Protocol PRN Reason: moderate anxiety Last Admin: 05/22/24 10:18 Dose: 0.1 mg Clonidine HCl (Clonidine Hcl 0.1 Mg Tablet) 0.1 mg PO BEDTIME TUCKER; Protocol Last Admin: 05/25/24 20:46 Dose: 0.1 mg Fluoxetine HCl (Fluoxetine Hcl 20 Mg Capsule) 20 mg PO DAILY [facility] Last Admin: 05/25/24 08:49 Dose: 20 mg Folic Acid (Folic Acid 1 Mg Tablet) 1 mg PO DAILY [facility] Last Admin: 05/25/24 08:50 Dose: 1 mg Hydroxyzine HCl (Hydroxyzine Hcl 25 Mg Tablet) 25 mg PO Q6H PRN PRN Reason: Anxiety Last Admin: 05/25/24 16:37 Dose: 25 mg Ibuprofen (Ibuprofen 600 Mg Tablet) 600 mg PO Q8H PRN PRN Reason: Pain, Moderate(Pain Scale 4-6) Last Admin: 05/25/24 08:54 Dose: 600 mg Magnesium Hydroxide (Milk Of Magnesia 30 Ml Oral.Susp) 30 ml PO DAILY PRN PRN Reason: Constipation Multivitamins/Vitamin C (Multivitamin Tablet) 1 tab PO DAILY [facility] Last Admin: 05/25/24 08:49 Dose: 1 tab Nicotine (Nicotine 21 Mg Patch.Td24) 21 mg TRANSDERMA DAILY PRN PRN Reason: smoking cessation Nicotine Polacrilex (Nicotine Polacrilex 2 Mg Gum) 4 mg BUCCAL Q2H PRN PRN Reason: Nicotine Cravings Olanzapine (Olanzapine 5 Mg Tablet) 5 mg PO TID PRN PRN Reason: agitation Last Admin: 05/25/24 15:00 Dose: 5 mg Thiamine HCl (Thiamine Hcl 100 Mg Tablet) 100 mg PO DAILY [facility] Last Admin: 05/25/24 08:50 Dose: 100 mg Trazodone HCl (Trazodone Hcl 50 Mg Tablet) 50 mg PO BEDTIME MRX1 PRN PRN Reason: Insomnia Last Admin: 05/25/24 20:46 Dose: 50 mg Allergies Allergies Allergy/AdvReac Type Severity Reaction Status Date / Time No Known Allergies Allergy Verified 05/19/24 11:22 [No Known Allergies*] Assessment & Plan Assessment & Plan (1) Severe recurrent major depressive disorder with psychosis: Status: Acute Code(s): F33.3 - Major depressive disorder, recurrent, severe with psychotic symptoms (2) PTSD (post-traumatic stress disorder): Status: Acute Code(s): F43.10 - Post-traumatic stress disorder, unspecified (3) Alcohol abuse: Status: Acute Code(s): F10.10 - Alcohol abuse, uncomplicated (4) Cocaine abuse: Status: Acute Code(s): F14.10 - Cocaine abuse, uncomplicated Plan Patient is a 48-year-old male with history of depression, PTSD who presents for worsening depression and SI in the face of psychosocial stressors and unmedicated. Patient reports that he is typically depressed and struggles mightily with memories of childhood trauma. Patient reports that when he is doing overall okay it is because he is suppressing these memories and such times do not last. Patient reports about a month and a half ago he and his started having relational problems which triggered this most recent bout of depression; patient moved out of the house and soon started drinking daily. He was then laid off from his job permanently about 2 weeks ago which further his depressed feelings as he had worked very hard for this company. Patient started having passive SI however the thoughts increased in about a week ago he started having more intense wishes of being with some vague plans and hoping it might happened accidentally; patient thought of his son however and decided to present for help. Patient says he has never before revealed his struggles with AH until this admission. Since teenage years he would intermittently hear a voice that would say hit or hit him... H this is the only word/words he has ever heard and would only happen if he was talking to another male (never with females or children). If the other male individual was confrontational, patient would start to think he better hit this person and hurt him before he himself gets hurt-and often would do so; if however this was a friend or a gentle person, patient would ignore the voice and just ask himself why he would get such an evil thought. Reports history of agitation and violence however none for well over a decade. There was one time, 12 years ago when his was that he heard the voice say baby is ... Or baby is not yours however he reiterates, this was a one time event and has never been repeated. Patient denies any history of manic type episodes or behaviors. Other than this past month, only drinks occasionally and not to excess, denies history of alcoholism; cocaine infrequently and only when it is offered. Formulation/clinical reasoning: Patient has history of significant depression and PTSD symptoms; AH seems to be more a product of trauma, given its nuances, rather than a psychotic etiology. Patient reports history of doing well on Prozac which he was on for 6 months which improved his mood and resolved AH; only reason he got off was thinking he did need it anymore. Patient denies any withdrawal symptoms and reportedly has not been drinking enough to require detox. Patient reports he has never before talked about AH or his trauma. He very much agrees that he needs therapy and feels that he is finally at a place where he is ready to open up. Plan: CV Q 15 minute checks Start Prozac 10 mg daily; will very likely titrate Zyprexa 5 mg p.r.n. for agitation Clonidine 0.1 mg q.h.s. for insomnia Trazodone p.r.n. for insomnia Gather collateral; patient gave permission to call his including giving her phone number Medication trials: Prozac: Helpful, AH resolved Zoloft: Not helpful [place] Seroquel Depakote 05/25: no changes 05/26/2024: Discharge planning Reason for continued inpatient stay Substantial Risk for: rapid decompensation Time Spent With Patient Time: Total time managing care of this patient today ____ minutes.
[2024-05-26] MEDS: Multivitamin TABLET 1 TAB PO (08:30)
[2024-05-26] MEDS: FLUoxetine HCl 20 MG CAPSULE PO (08:30)
[2024-05-26] MEDS: Folic Acid 1 MG TABLET PO (08:30)
[2024-05-26] MEDS: Thiamine HCL 100 MG TABLET PO (08:30)
[2024-05-26] MEDS: hydrOXYzine HCL 25 MG TABLET PO (12:11)
[2024-05-26 20:00] VITALS: BP 142/80; PULSE 76; RESP 16; TEMP 36.2; O2SAT 95
[2024-05-26] MEDS: cloNIDine HCL 0.1 MG TABLET PO (20:31)
[2024-05-26] MEDS: OLANZapine 5 MG TABLET PO (21:36)
[2024-05-27 08:12] VITALS: BP 110/77; PULSE 77; TEMP 36.7; O2SAT 95
[2024-05-27] MEDS: Folic Acid 1 MG TABLET PO (09:06)
[2024-05-27] MEDS: Multivitamin TABLET 1 TAB PO (09:06)
[2024-05-27] MEDS: FLUoxetine HCl 20 MG CAPSULE PO (09:06)
[2024-05-27] MEDS: Thiamine HCL 100 MG TABLET PO (09:06)
[2024-05-27] MEDS: OLANZapine 5 MG TABLET PO ×2 (09:09→20:52)
[2024-05-27 10:03] VITALS: BP 127/90; O2SAT 96
--- NOTE | 2024-05-27 10:03 | P.PNPSI_ITS ---
Subjective Subjective Date of Service: 05/27/24 Reason For Visit: depression/si Interim History: met with patient; discussed with team doing well and says he's good and that he feels he accomplished what he needed to during this admission; says he learned to open up...done all i could... and that he's figured out a lot. Discussed after-care, medication; wants to go up to Prozac saying he used to be on 40mg; thinks 30mg maybe ok. Discussed relationship with and he's hopeful to reconcile Mental Status Exam Mental Status Exam Narrative: Pt is alert and oriented; behavior is cooperative, calm; patient is not in distress; dressed in casual attire adequate hygiene and grooming; mood is described as good and affect congruent, brighter; eye contact appropriate; Speech is normal rate, volume, prosody; no psychomotor retardation present; thought process is organized and goal directed; Thought content is on processing trauma, family; otherwise pertinent to relevant topics and without any delusional content, paranoid ideations or grandiosity; no SI/noHI. No AVH Patients insight and judgment fair. Diagnostics Vital Signs (24Hr): Vital Signs - 24 hr 05/26/24 20:00 05/27/24 08:12 Temperature 97.1 F 98.0 F Pulse Rate 76 77 Respiratory Rate 16 Blood Pressure 142/80 H 110/77 Pulse Oximetry 95 95 Oxygen Delivery Method Room Air BMI result Body Mass Index 31.4 Labs 05/19/24 11:29 05/22/24 08:20 Medications Medications Current Medications Acetaminophen (Acetaminophen 325 Mg Tablet) 650 mg PO Q6H PRN PRN Reason: Headache/Pain Mild Scale (1-3) Last Admin: 05/25/24 20:46 Dose: 650 mg Al Hydroxide/Mg Hydroxide (Magnesium Hydrox/Alum Hydrox 30 Ml Oral.Susp) 30 ml PO Q6H PRN PRN Reason: Heartburn/Nausea Clonidine HCl (Clonidine Hcl 0.1 Mg Tablet) 0.1 mg PO Q4H PRN; Protocol PRN Reason: moderate anxiety Last Admin: 05/22/24 10:18 Dose: 0.1 mg Clonidine HCl (Clonidine Hcl 0.1 Mg Tablet) 0.1 mg PO BEDTIME TUCKER; Protocol Last Admin: 05/26/24 20:31 Dose: 0.1 mg Fluoxetine HCl (Fluoxetine Hcl 20 Mg Capsule) 20 mg PO DAILY [facility] Last Admin: 05/27/24 09:06 Dose: 20 mg Folic Acid (Folic Acid 1 Mg Tablet) 1 mg PO DAILY [facility] Last Admin: 05/27/24 09:06 Dose: 1 mg Hydroxyzine HCl (Hydroxyzine Hcl 25 Mg Tablet) 25 mg PO Q6H PRN PRN Reason: Anxiety Last Admin: 05/26/24 12:11 Dose: 25 mg Ibuprofen (Ibuprofen 600 Mg Tablet) 600 mg PO Q8H PRN PRN Reason: Pain, Moderate(Pain Scale 4-6) Last Admin: 05/25/24 08:54 Dose: 600 mg Magnesium Hydroxide (Milk Of Magnesia 30 Ml Oral.Susp) 30 ml PO DAILY PRN PRN Reason: Constipation Multivitamins/Vitamin C (Multivitamin Tablet) 1 tab PO DAILY [facility] Last Admin: 05/27/24 09:06 Dose: 1 tab Nicotine (Nicotine 21 Mg Patch.Td24) 21 mg TRANSDERMA DAILY PRN PRN Reason: smoking cessation Nicotine Polacrilex (Nicotine Polacrilex 2 Mg Gum) 4 mg BUCCAL Q2H PRN PRN Reason: Nicotine Cravings Olanzapine (Olanzapine 5 Mg Tablet) 5 mg PO TID PRN PRN Reason: agitation Last Admin: 05/27/24 09:09 Dose: 5 mg Thiamine HCl (Thiamine Hcl 100 Mg Tablet) 100 mg PO DAILY [facility] Last Admin: 05/27/24 09:06 Dose: 100 mg Trazodone HCl (Trazodone Hcl 50 Mg Tablet) 50 mg PO BEDTIME MRX1 PRN PRN Reason: Insomnia Last Admin: 05/25/24 20:46 Dose: 50 mg Allergies Allergies Allergy/AdvReac Type Severity Reaction Status Date / Time No Known Allergies Allergy Verified 05/19/24 11:22 [No Known Allergies*] Assessment & Plan Assessment & Plan (1) Severe recurrent major depressive disorder with psychosis: Status: Acute Code(s): F33.3 - Major depressive disorder, recurrent, severe with psychotic symptoms (2) PTSD (post-traumatic stress disorder): Status: Acute Code(s): F43.10 - Post-traumatic stress disorder, unspecified (3) Alcohol abuse: Status: Acute Code(s): F10.10 - Alcohol abuse, uncomplicated (4) Cocaine abuse: Status: Acute Code(s): F14.10 - Cocaine abuse, uncomplicated Plan Patient is a 48-year-old male with history of depression, PTSD who presents for worsening depression and SI in the face of psychosocial stressors and unmedicated. Patient reports that he is typically depressed and struggles mightily with memories of childhood trauma. Patient reports that when he is doing overall okay it is because he is suppressing these memories and such times do not last. Patient reports about a month and a half ago he and his started having relational problems which triggered this most recent bout of depression; patient moved out of the house and soon started drinking daily. He was then laid off from his job permanently about 2 weeks ago which further his depressed feelings as he had worked very hard for this company. Patient started having passive SI however the thoughts increased in about a week ago he started having more intense wishes of being with some vague plans and hoping it might happened accidentally; patient thought of his son however and decided to present for help. Patient says he has never before revealed his struggles with AH until this admission. Since teenage years he would intermittently hear a voice that would say hit or hit him... H this is the only word/words he has ever heard and would only happen if he was talking to another male (never with females or children). If the other male individual was confrontational, patient would start to think he better hit this person and hurt him before he himself gets hurt-and often would do so; if however this was a friend or a gentle person, patient would ignore the voice and just ask himself why he would get such an evil thought. Reports history of agitation and violence however none for well over a decade. There was one time, 12 years ago when his was that he heard the voice say baby is ... Or baby is not yours however he reiterates, this was a one time event and has never been repeated. Patient denies any history of manic type episodes or behaviors. Other than this past month, only drinks occasionally and not to excess, denies history of alcoholism; cocaine infrequently and only when it is offered. Formulation/clinical reasoning: Patient has history of significant depression and PTSD symptoms; AH seems to be more a product of trauma, given its nuances, rather than a psychotic etiology. Patient reports history of doing well on Prozac which he was on for 6 months which improved his mood and resolved AH; only reason he got off was thinking he did need it anymore. Patient denies any withdrawal symptoms and reportedly has not been drinking enough to require detox. Patient reports he has never before talked about AH or his trauma. He very much agrees that he needs therapy and feels that he is finally at a place where he is ready to open up. Hospital course:Hospital course: doing better, mood is better and depression abating, no SI; AH resolved and tolerating prozac; engaged in treatment 05/24 mood better, affect brighter; continues to process trauma hx, family relationships 05/27 doing well, good mood, future oriented; feels he's accomplished much and ready to discharge. No SI; no AH. Optimistic; plans to do partial day program. Not in imminent risk of harm to self/other and appropriate to return to community for tx -going up on Prozac; reviewed risks/side-effects of meds, zyprexa and understands and agrees to continue Plan: CV Q 15 minute checks increase Prozac 30 mg daily; will very likely titrate Zyprexa 5 mg p.r.n. for agitation Clonidine 0.1 mg q.h.s. for insomnia Trazodone p.r.n. for insomnia [employer]ather collateral; patient gave permission to call his including giving her phone number Medication trials: Prozac: Helpful, AH resolved Zoloft: Not helpful [place] Seroquel Depakote Patient educated on: diagnosis, medication risk/benefits and therapeutic strategies Informed Consent: understands Reason for continued inpatient stay Substantial Risk for: stable for discharge Time Spent With Patient Time: Total time managing care of this patient today ____ minutes.
[2024-05-27] MEDS: FLUoxetine HCl 10 MG CAPSULE PO (16:21)
[2024-05-27 16:59] VITALS: BP 137/93
[2024-05-27] MEDS: cloNIDine HCL 0.1 MG TABLET PO ×2 (16:59→20:52)
[2024-05-27 20:00] VITALS: BP 140/81; PULSE 80; TEMP 36.2; O2SAT 96
[2024-05-28 08:15] VITALS: PULSE 64; RESP 16; TEMP 36.9; O2SAT 95
--- NOTE | 2024-05-28 08:35 | P.DS_ITS ---
DS: Providers Provider Date of Service: 05/28/24 Date of admission: 05/21/24 13:24 Date of discharge: 05/28/24 Primary care physician: None Physician Attending physician on admission: Raj Malik Attending physician on discharge: Raj Malik DS: Diagnosis Discharge Diagnosis (1) Severe recurrent major depressive disorder with psychosis: Status: Acute (2) PTSD (post-traumatic stress disorder): Status: Acute (3) Alcohol abuse: Status: Acute (4) Cocaine abuse: Status: Acute DS: Medications Discharge Medications Home Medications: Home Medications ?Medication ?Instructions ?Recorded ?Confirmed No Known Home Meds 05/21/24 05/21/24 Previous Rx's ?Medication ?Instructions ?Recorded clonidine HCl 0.1 mg tablet 0.1 mg PO Q4H PRN anxiety/insomnia 05/28/24 30 days #90 tabs fluoxetine 20 mg capsule 40 mg (2 x 20 mg) PO DAILY 30 days 05/28/24 #60 caps olanzapine 5 mg tablet 5 mg PO TID PRN agitation 30 days 05/28/24 #60 tabs Mental Status Exam Mental Status Exam Narrative: Pt is alert and oriented; behavior is cooperative, calm; patient is not in distress; dressed in casual attire adequate hygiene and grooming; mood is described as good and affect congruent, brighter; eye contact appropriate; Speech is normal rate, volume, prosody; no psychomotor retardation present; thought process is organized and goal directed; Thought content is on processing trauma, family; otherwise pertinent to relevant topics and without any delusional content, paranoid ideations or grandiosity; no SI/noHI. No AVH Patients insight and judgment fair. Data Data Completed and Pending Completed studies during hospitalization [Text1]: 05/22/24 08:20 Sodium 139 Potassium 4.5 D Chloride 104 Carbon Dioxide 27 Anion Gap 13 BUN 16 Creatinine 0.99 Estim Creat Clear Calc 119.8 Estimated GFR > 60 Fasting Glucose 107 H Estimat Average Glucose 103 Hemoglobin A1c % 5.2 Calcium 9.9 D Total Bilirubin 0.6 AST 19 ALT 27 Alkaline Phosphatase 55 Total Protein 7.3 Albumin 4.3 Triglycerides 161 H Cholesterol 188 LDL Cholesterol, Calc 120 H HDL Cholesterol 36 L TSH 4.71 H Free T4 0.77 DS: Summary Hospital Course Hospital Course: Patient is a 48-year-old male with history of depression, PTSD who presents for worsening depression and SI in the face of psychosocial stressors and unmedicated. Patient reports that he is typically depressed and struggles mightily with memories of childhood trauma. Patient reports that when he is doing overall okay it is because he is suppressing these memories and such times do not last. Patient reports about a month and a half ago he and his started having relational problems which triggered this most recent bout of depression; patient moved out of the house and soon started drinking daily. He was then laid off from his job permanently about 2 weeks ago which further his depressed feelings as he had worked very hard for this company. Patient started having passive SI however the thoughts increased in about a week ago he started having more intense wishes of being with some vague plans and hoping it might happened accidentally; patient thought of his son however and decided to present for help. Patient says he has never before revealed his struggles with AH until this admission. Since teenage years he would intermittently hear a voice that would say hit or hit him... H this is the only word/words he has ever heard and would only happen if he was talking to another male (never with females or children). If the other male individual was confrontational, patient would start to think he better hit this person and hurt him before he himself gets hurt-and often would do so; if however this was a friend or a gentle person, patient would ignore the voice and just ask himself why he would get such an evil thought. Reports history of agitation and violence however none for well over a decade. There was one time, 12 years ago when his was that he heard the voice say baby is ... Or baby is not yours however he reiterates, this was a one time event and has never been repeated. Patient denies any history of manic type episodes or behaviors. Other than this past month, only drinks occasionally and not to excess, denies history of alcoholism; cocaine infrequently and only when it is offered. Formulation/hospital course: Patient has history of significant depression and PTSD symptoms; AH seems to be more a product of trauma, given its nuances, rather than a psychotic etiology. Patient reports history of doing well on Prozac which he was on for 6 months which improved his mood and resolved AH; only reason he got off was thinking he did need it anymore. Patient denies any withdrawal symptoms and reportedly has not been drinking enough to require detox; cocaine use is rare. Patient reports he has never before talked about AH or his trauma and very much agrees that he needs therapy; he feels that he is finally at a place where he is ready to open up. Regarding diagnosis, patient has no history of discrete manic episodes or behaviors; AH was of 1 word only and related to significant childhood traumatic history. Patient did not meet criteria for bipolar or schizophrenia and diagnosis is adequately explained by the combination of MDD and PTSD. Patient was started on Prozac which was titrated; though depressed and with any self-deprecating thoughts, SI had fully resolved (and patient cited love for his family and son as very strong protective factors). Patient was polite, cooperative and fully engaged; immediately he started opening up, talking about his trauma for the 1st time ever, and making connections between this traumatic history and his current behaviors and relational struggles. Processing these thoughts and feelings proved very beneficial and patient was excited that he was learning to talk more and feeling significant relief. Patient's mood started to improve and depression fully abated; AH also nearly fully resolved (he inte rmittently would still hear the word hit but only when another male stared at his eyes; patient was able to retain perspective and easily dismiss it). Patient started talking to his and began the process of reconciliation; he also became excited to talk to his son and be more open about his own struggles. Patient remained in good behavioral and impulse control throughout his time in the unit; he was appropriate with peers and staff and fully engaged in treatment, forthcoming in 1 on 1 sessions and attending groups. Patient benefited from clonidine for anxiety and at bedtime; he also benefited from PRNs Zyprexa which he used when he started to feel some agitation. Patient felt ready to return to the community for continued treatment; he wanted to attend the partial day program and engage in outpatient therapy. Patient fully understood that despite the significant progress he made during this admission, he would still very likely have ongoing struggles, however he felt much more equipped to deal with these and was optimistic and future oriented; he said i feel i accomplished what i needed too...i learned to be open. Patient tolerated Prozac well and asked for to be titrated up to 40 mg which was the dose he was on in the past. Patient was not in imminent risk for harm to self or others and request for discharge honored. Medication trial history: Prozac: Helpful, AH resolved Zoloft: Not helpful [place]; only on inpatient unit Seroquel ; only on inpatient unit Depakote; only on inpatient unit Time spent discussing smoking cessation with patient: 3 to 10 minutes Status at Discharge Functional status at discharge: independent ambulation Overall status at discharge: patient is back to baseline Time Spent with Patient Time attestation: Total time managing care of this patient today __40__ minutes. Time spent: Greater than 30 minutes Specific discharge activities: Met with patient; discussed with team; prescriptions; charting Discharge Plan Discharge Anticipated Discharge Date/Time: 05/28/24 11:30 Patient Disposition: Home, Self-Care Discharge Diagnosis: MDD, recurrent, severe with psychotic symptoms, in full remission; PTSD Referrals: [facility] Walk-In Intake [Other] - 3-5 Days ([facility] offers a same day walk-in intake appt that will get you set up with a psychiatry appt and therapy. Hours for walk-in are: 10-12 M-F Make sure to go with your discharge paperwork) [facility] Partial Hospitalization Program [Other] - 1 Week (Call them as soon as you get your insurance set up and let them know you were recently inpatient at [facility]. ) [place] Partial Hospitalization Program [Other] - 1 Week Physician,None [Primary Care Provider] - 1 Week Discharge Medications: New clonidine HCl 0.1 mg Tablet 0.1 mg PO Q4H PRN (Reason: anxiety/insomnia) 30 Days Qty: 90 2RF Protocol: Hold for SBP< HOLD for SBP < : 90 fluoxetine 20 mg capsule 40 mg PO DAILY 30 Days Qty: 60 2RF olanzapine 5 mg Tablet 5 mg PO TID PRN (Reason: agitation) 30 Days Qty: 60 2RF No Action No Known Home Meds Discharge Orders: Discharge Order (Routine); Ordered 05/28/24 Ordered By: Raj Malik Diet: Regular diet Activity on Discharge: As tolerated Stand Alone Forms: Patient Portal Discharge page, Community Support Print Language: Citizen Of [place] Care Plan Goals: Maintain mood and safe behaviors Take medications as prescribed Continue to pursue sobriety Practice coping skills Continue with outpatient providers and reach out to them as needed Health Concerns: Mood stability and behaviors Sobriety Chronic knee pain Plan of Treatment: Follow up with your PCP, psychiatric provider and other outpatient providers regarding above concerns Take medications as prescribed Assessment: Risk assessment at time of discharge:? Patient was interviewed prior to discharge and found to be fully oriented and without any SI or HI. Patient has improved insight and judgment and wants to continue treatment. Patient is not in imminent risk of harm to self or others and has a safety plan that includes presenting to the closest ER or calling 911 if feeling unsafe.? Patient has been observed closely by nursing and unit staff throughout admission; patient has not engaged in any behaviors that suggest dangerousness to self or others and has demonstrated appropriate behaviors and impulse control
[2024-05-28] MEDS: Thiamine HCL 100 MG TABLET PO (08:43)
[2024-05-28] MEDS: Folic Acid 1 MG TABLET PO (08:43)
[2024-05-28] MEDS: FLUoxetine HCl 10 MG CAPSULE 30 MG PO (08:43)
[2024-05-28] MEDS: Multivitamin TABLET 1 TAB PO (08:43)
[2024-05-28 08:48] VITALS: BP 119/77
[2024-05-28] MEDS: cloNIDine HCL 0.1 MG TABLET PO (08:48)
[2024-05-28] MEDS: Naloxone HCl Nasal TAKE HOME 4 MG SPRAY 8 MG NOSTRILALT (08:49)
[2024-05-28] MEDS: OLANZapine 5 MG TABLET PO (09:39)
== END 2024-05-28 11:10 | disposition home or self-care (01) | DRG 885 ==
LOC: HO.ED 05-21 08:17 → HO.PM5 05-21 13:33
PROVIDERS: Physician Assistant; Admitting Provider Psychiatry & Neurology Psychiatry; Emergency Provider Emergency Medicine Emergency Medical Services; Visit Provider Psychiatry & Neurology Psychiatry
DX: F33.3 Major depressive disorder, recurrent, severe with psychotic symptoms (principal); R45.851 Suicidal ideations; F43.10 Post-traumatic stress disorder, unspecified; F14.10 Cocaine abuse, uncomplicated; F17.210 Nicotine dependence, cigarettes, uncomplicated; Y90.5 Blood alcohol level of 100-119 mg/100 ml; Z56.0 Unemployment, unspecified; Z63.5 Disruption of family by separation and divorce; Z71.6 Tobacco abuse counseling; Z62.810 Personal history of physical and sexual abuse in childhood; Z79.899 Other long term (current) drug therapy
CPT/HCPCS: 36415; 80048; 80053; 80061; 80076; 80143; 80179; 80307; 83036; 83690; 83735; 84439; 84443; 85025; 93005; 99285; S9485

== ENCOUNTER → 2024-05-21 13:24 | Outpatient (BNV) | payer SELFPAY | PROVIDERS: Admitting Provider Psychiatry & Neurology Psychiatry; Emergency Provider Emergency Medicine Emergency Medical Services; Visit Provider Psychiatry & Neurology Psychiatry | DX: F33.3 Major depressive disorder, recurrent, severe with psychotic symptoms (principal); F14.10 Cocaine abuse, uncomplicated; F10.10 Alcohol abuse, uncomplicated; F43.11 Post-traumatic stress disorder, acute | CPT/HCPCS: 90792; 99231; 99232; 99239 ==